=== PATIENT | male | born 1950 | race African-American/Black ===

== ENCOUNTER 2017-09-06 16:15 | Emergency (ER) | payer MEDICAID, OTHER ==
[~2017-09-06] VITALS: Ht 177.8 cm; Wt 77.1 kg
[2017-09-06 16:40] VITALS: BP 109/63
[2017-09-06] MEDS ORDERED: TETANUS-DIPTH-ACEL PERTUSSIS 0.5ML SYRG IM ONE (17:15)
== END 2017-09-06 17:37 | disposition home or self-care (01) ==
LOC: ER 16:25
DX: S81.031A Puncture wound without foreign body, right knee, initial encounter (principal); F17.210 Nicotine dependence, cigarettes, uncomplicated; Z88.6 Allergy status to analgesic agent; X58.XXXA Exposure to other specified factors, initial encounter; Y93.89 Activity, other specified; Y99.8 Other external cause status; Y92.89 Other specified places as the place of occurrence of the external cause
CPT/HCPCS: 90471; 90715